=== PATIENT | female | born 1975 | race Caucasian/White ===

== ENCOUNTER 2016-04-25 00:12 | Outpatient (CLI) ==
[2016-03-06 13:23] VITALS: BMI 25.7
== END 2016-04-25 00:13 | disposition home or self-care (01) ==
LOC: AMBL 00:12
PROVIDERS: ATTEND Family Medicine
DX: S60.812A Abrasion of left wrist, initial encounter (principal)

== ENCOUNTER 2017-03-22 16:15 | Outpatient (CLI) ==
[2016-03-06 13:23] VITALS: BMI 25.7
[2017-03-22 16:20] LABS: FLU INTERNAL QC INTERNAL QC VALID; RAPID FLU A NEGATIVE (NEGATIVE); RAPID FLU B NEGATIVE (NEGATIVE)
== END 2017-03-22 16:16 | disposition home or self-care (01) ==
LOC: LAB 16:15
PROVIDERS: ATTEND Nurse Practitioner Family
DX: J02.9 Acute pharyngitis, unspecified (principal); R05 Cough
CPT/HCPCS: 87651; 87804; 87880

== ENCOUNTER 2017-07-18 14:51 | Outpatient (CLI) ==
[2016-03-06 13:23] VITALS: BMI 25.7
--- NOTE | 2017-07-18 15:20 | DI ---
EXAM: PA and lateral views of the chest HISTORY: Cough. COMPARISON: Chest x-ray 03/06/2016 and multiple priors FINDINGS: The cardiomediastinal silhouette is normal. There is no pneumothorax or pleural effusion. There is no consolidation, nodule or mass. The osseous structures are unremarkable. IMPRESSION: No acute cardiopulmonary process
== END 2017-07-18 14:52 | disposition home or self-care (01) ==
LOC: RAD 14:51
PROVIDERS: ATTEND Physician Assistant
DX: R05 Cough (principal)

== ENCOUNTER 2018-02-09 14:44 | Outpatient (CLI) ==
[2016-03-06 13:23] VITALS: BMI 25.7
--- NOTE | 2018-02-09 17:28 | DI ---
EXAM: Three views of the lumbar spine HISTORY: Pain COMPARISON: 09/03/2013 FINDINGS: There are five lumbar-type vertebrae. The lumbar vertebral bodies are normal in height. L5-S1 disc spacers are again seen. No disc height loss or listhesis is seen. There is mild to moderate L4-5 fac et arthropathy. IMPRESSION: L5-S1 disc spacers again seen. No significant degenerative disc disease. Mild to moderate L4-5 facet arthropathy.
== END 2018-02-09 14:45 | disposition home or self-care (01) ==
LOC: RAD 14:44
PROVIDERS: ATTEND Physician Assistant
DX: M54.5 Low back pain (principal)

== ENCOUNTER 2018-03-26 13:02 | Inpatient (IN) ==
[2018-03-26] MEDS ORDERED: SODIUM CHLORIDE 1,000 ML IV STA (13:48)
[2018-03-26] MEDS ORDERED: MORPHINE 2 MG/ML SYRINGE IM STA (13:48)
[2018-03-26] MEDS ORDERED: MORPHINE 2 MG/ML SYRINGE IVP STA (13:48)
[2018-03-26] MEDS ORDERED: ZOFRAN 4 MG/2 ML IVP STA (13:48)
[2018-03-26 14:03] LABS: URINE PREGNANCY TEST NEGATIVE (NEGATIVE)
[2018-03-26] MEDS ORDERED: ROCEPHIN 1 GM in SODIUM CHLORIDE 50 ML IV STA (14:15)
[2018-03-26] MEDS ORDERED: ROCEPHIN ONE (14:27)
--- NOTE | 2018-03-26 14:39 | CT ---
EXAM: CT of the abdomen pelvis without contrast History: Right flank pain. Comparison: CT abdomen pelvis 04/28/2015 Technique: Multiplanar CT images through the abdomen pelvis were obtained without the administration of IV contrast Findings: Lung bases are free of consolidation. No acute osseous abnormalities. Postsurgical duarte es of the lower lumbar spine at L5-S1. No focal liver or splenic lesions. No discrete gallstones identified by CT. No peripancreatic infla mmation. Adrenal glands are unremarkable. Bilateral renal calculi measuring up to 2 mm on the right and 2 mm on the left. No ureteral calculi. No hydronephrosis. Right perinephric inflammation. No bowel obstruction. Nondilated fluid filled loops of bowel. No bladder wall thickening. Adnexal st ructures appear appropriate for patient's age. No free air. Impression: 1. Right perinephric stranding suspicious for pyelonephritis. Recently passed stone could give a si milar appearance. 2. Bilateral nephrolithiasis
--- NOTE | 2018-03-26 15:20 | ED.PDOC ---
General ED Provider: Dr. BROOKLYN CASTREJON Chief Complaint: Back Pain Stated Complaint: low back pain Time Seen by Physician: 13:00 Mode of Arrival: Walk-In Information Source: Patient Exam Limitations: No limitations Primary Care Provider: MICHELLE LOERA Nursing and Triage Documentation Reviewed and Agree: Yes Does patient meet sepsis criteria?: No System Inflammatory Response Syndrome: Not Applicable Sepsis Protocol: For patient's 13 years and over: Temp is 96.8 and below OR 101 and greater Pulse >90 BPM Resp >20/minute Acutely Altered Mental Status Are patient's symptoms suggestive of a new infection, such as: -Pneumonia -Skin, Soft Tissue -Endocarditis -UTI -Bone, Joint Infection -Implantable Device -Acute Abdominal Infection -Wound Infection -Meningitis -Blood Stream Catheter Infection -Unknown Musculoskeletal Complaint Exam - Back Pain Complaint/Exam Mechanism of Injury: Reports: No known trauma Onset/Duration: dysuria Symptoms Are: Still present Timing: Intermittent Episodes Lasting: Minutes Initial Severity: Moderate Current Severity: Moderate Location: Reports: Discrete Character: Reports: Aching Aggravating: Reports: Movements Alleviating: Reports: Rest Associated Signs and Symptoms: Reports: Flank pain TAD Risk Factors: Reports: None Cauda Equina Risk Factors: Reports: None Epidural Abcess Risk Factors: Reports: None Related Surgical History: Reports: None Focal Tenderness: No Paraspinal Muscle Tenderness: No Paraspinal Muscle Spasm: No Scoliosis: No Lordosis: No Kyphosis: No SLR Test: Right Negative, Left Negative Hip Motion Testing Pain: Right Negative, Left Negative Focal Weakness: Present: None Focal Sensory Loss: Present: None Differential Diagnoses: Other (uti) Review of Systems - Review Of Systems Constitutional: Reports: No symptoms Eyes: Reports: No symptoms Ears, Nose, Mouth, Throat: Reports: No symptoms Respiratory: Reports: No symptoms Cardiac: Reports: No symptoms GI: Reports: No symptoms : Reports: Dysuria, Flank pain Musculoskeletal: Reports: No symptoms Skin: Reports: No symptoms Neurological: Reports: No symptoms Endocrine: Reports: No symptoms Hematologic/Lymphatic: Reports: No symptoms All Other Systems: Reviewed and Negative Past Medical History - Past Medical History Previously Healthy: Yes Endocrine: Reports: None Cardiovascular: Reports: None Respiratory: Reports: Asthma Hematological: Reports: None Gastrointestinal: Reports: None Genitourinary: Reports: None Neuro/Psych: Reports: Anxiety, Depression Musculoskeletal: Reports: None Cancer: Reports: None Last Menstrual Period: 1 week ago - Surgical History General Surgical History: Reports: Tubal ligation (TUBAL, LEEP PROCEDURE X2, DIAGNOSTIC LAP), Tonsillectomy, Orthopedic (CYST FROM RIGHT WRIST ), Unknown. Denies: Hysterectomy (LEEP PROCEDURE X2 ) - Family History Family History: Reports: Unknown - Social History Smoking Status: Vaping Hx Substance Use: No Alcohol Screening: None Physical Exam - Physical Exam Appearance: Well-appearing, No pain distress, Well-nourished Eyes: ALFREDO, EOMI, Conjunctiva clear ENT: Ears normal, Nose normal, Oropharynx normal Respiratory: Airway patent, Breath sounds clear, Breath sounds equal, Respirations nonlabored Cardiovascular: RRR, Pulses normal, No rub, No murmur GI/: Soft, Nontender, No masses, Bowel sounds normal, No Organomegaly Musculoskeletal: Normal strength, ROM intact, No edema, No calf tenderness Skin: Warm, Dry, Normal color Neurological: Sensation intact, Motor intact, Reflexes intact, Cranial nerves intact, Alert, Oriented Psychiatric: Affect appropriate, Mood appropriate Interpretation - Radiology Interpretation Radiology Interpretation By: Radiologist Radiology Results: Positive (pylonrphritis) Physician Notification - Case Discussed Physician Notified: [email or web address] Admit To: Inpatient Critical Care Note - Critical Care Note Total Time (mins): 0 Course - Course Hematology/Chemistry: 03/26/18 13:57 03/26/18 13:57 Orders, Labs, Meds: Lab Review 03/26/18 03/26/18 03/26/18 13:57 13:57 13:57 WBC 25.21 H RBC 5.13 Hgb 15.6 Hct 44.5 MCV 86.7 MCH 30.4 MCHC 35.1 RDW Coeff of Ovidio 12.1 Plt Count 346 Immature Gran % (Auto) 0.8 Neut % (Auto) 84.7 Lymph % (Auto) 4.8 L [place] % (Auto) 9.5 Eos % (Auto) 0.0 Baso % (Auto) 0.2 Immature Gran # (Auto) 0.2 Neut # (Auto) 21.4 H Lymph # (Auto) 1.2 [place] # (Auto) 2.4 H Eos # (Auto) 0.0 Baso # (Auto) 0.0 Sodium 130.9 L Potassium 3.58 Chloride 98.1 Carbon Dioxide 22.8 Anion Gap 13.58 BUN 10.0 Creatinine 0.92 Estimated GFR (MDRD) 67.00 BUN/Creatinine Ratio 10.86 Glucose 109.0 H Lactic Acid Calcium 9.26 Total Bilirubin 1.17 AST 29.3 ALT 20.7 Alkaline Phosphatase 96.7 Total Protein 7.48 Albumin 4.25 Globulin 3.23 Albumin/Globulin Ratio 1.31 Procalcitonin Urine Color Yellow Urine Clarity Turbid Urine pH 6.5 Ur Specific [place] 1.015 Urine Protein 2+ Urine Glucose (UA) Negative Urine Ketones 4+ Urine Blood 3+ Urine Nitrite Positive Urine Bilirubin 1+ Urine Urobilinogen 0.2 Ur Leukocyte Esterase 3+ Urine Microscopic RBC 10-20 Urine Microscopic WBC Tntc Ur Squamous Epith Cells Not present Urine Bacteria 2+ Urine Mucus 1+ Urine Test 03/26/18 03/26/18 03/26/18 13:57 14:22 14:22 WBC RBC Hgb Hct MCV MCH MCHC RDW Coeff of [place] Plt Count Immature Gran % (Auto) Neut % (Auto) Lymph % (Auto) [place] % (Auto) Eos % (Auto) Baso % (Auto) Immature Gran # (Auto) Neut # (Auto) Lymph # (Auto) [place] # (Auto) Eos # (Auto) Baso # (Auto) Sodium Potassium Chloride Carbon Dioxide Anion Gap BUN Creatinine Estimated GFR (MDRD) BUN/Creatinine Ratio Glucose Lactic Acid 0.95 Calcium Total Bilirubin AST ALT Alkaline Phosphatase Total Protein Albumin Globulin Albumin/Globulin Ratio Procalcitonin 1.30 Urine Color Urine Clarity Urine pH Ur Specific [place] Urine Protein Urine Glucose (UA) Urine Ketones Urine Blood Urine Nitrite Urine Bilirubin Urine Urobilinogen Ur Leukocyte Esterase Urine Microscopic RBC Urine Microscopic WBC Ur Squamous Epith Cells Urine Bacteria Urine Mucus Urine Test Negative Orders Category Date Time Status ED IV/MEDIPORT/POWERPORT .ONCE EMERGENCY 03/26/18 13:47 Active BLOOD CULTURE (ED ONLY) Stat LAB 03/26/18 14:22 Received CBC W/ AUTO DIFF Stat LAB 03/26/18 13:57 Completed COMPREHENSIVE METABOLIC PANEL Stat LAB 03/26/18 13:57 Completed LACTIC ACID Stat LAB 03/26/18 14:22 Completed PROCALCITONIN Stat LAB 03/26/18 14:22 Completed URINALYSIS C & S IF INDICATED Stat LAB 03/26/18 13:57 Completed URINE CULTURE Stat LAB 03/26/18 13:57 Received URINE Stat LAB 03/26/18 13:57 Completed 0.9 % Sodium Chloride [Saline Flush] MEDS 03/26/18 13:47 Active 1 syr IVF PRN PRN Ceftriaxone Sodium [Rocephin] MEDS 03/26/18 14:27 Discontinued 1 gm .ROUTE .STK-MED ONE Ceftriaxone Sodium [Rocephin] 1 gm MEDS 03/26/18 14:15 Discontinued 0.9 % Sodium Chloride [Sodium Chloride] 50 ml IV ONCE Morphine Sulfate [Morphine 2 mg/ml Syringe] MEDS 03/26/18 13:48 Discontinued 4 mg IVP ONCE STA Ondansetron HCl/Pf [Zofran 4 mg/2 ml] MEDS 03/26/18 13:48 Discontinued 4 mg IVP ONCE STA Sodium Chloride 0.9% [Sodium Chloride] 1,000 ml MEDS 03/26/18 13:48 Active IV 125 mls/hr CT ABD/PEL WO RENAL STONE PROT Stat RADS 03/26/18 13:47 Completed Medications Generic Name Dose Route Start Last Admin Trade Name Freq PRN Reason Stop Dose Admin Sodium Chloride 1,000 mls @ 125 mls/hr 03/26/18 13:48 03/26/18 14:04 Sodium Chloride IV 03/26/18 21:47 125 mls/hr .Q8H STA Administration Sodium Chloride 1 syr 03/26/18 13:47 03/26/18 14:07 Saline Flush IVF 1 syr PRN PRN Administration To flush IV Discontinued Medications Generic Name Dose Route Start Last Admin Trade Name Freq PRN Reason Stop Dose Admin Ceftriaxone Sodium 1 gm/ 50 mls @ 75 mls/hr 03/26/18 14:15 03/26/18 14:33 Sodium Chloride IV 03/26/18 14:54 75 mls/hr ONCE STA Administration Morphine Sulfate 4 mg 03/26/18 13:48 03/26/18 14:04 Morphine 2 Mg/Ml Syringe IVP 03/26/18 13:49 4 mg ONCE STA Administration Ondansetron HCl 4 mg 03/26/18 13:48 03/26/18 14:04 Zofran 4 Mg/2 Ml IVP 03/26/18 13:49 4 mg ONCE STA Administration Vital Signs: Temp Pulse Resp BP Pulse Ox 03/26/18 13:03 101.8 F H 116 H 20 0/0 L 98 Departure - Departure Time of Disposition: 15:22 Disposition: HOME SELF-CARE Discharge Problem: Backache, Pyelonephritis Condition: Good Pt referred to PMD for follow-up: Yes IPMP verified?: No Allergies/Adverse Reactions: Allergies cefprozil [From Cefzil] Adverse Reaction (Verified 03/26/18 13:06) erythromycin base [Erythromycin Base] Adverse Reaction (Verified 03/26/18 13:06) Penicillins Adverse Reaction (Verified 03/26/18 13:06) Home Medications: Ambulatory Orders Albuterol Sulfate [Albuterol Sulfate Hfa] 8.5 gm IH QID PRN #1 hfa.aer.ad Duloxetine HCl [Cymbalta] 30 mg PO BID 03/22/17 Lamotrigine [Lamictal] 100 mg PO BID 03/22/17 Montelukast Sodium [Singulair] 10 mg PO d 03/22/17 Diazepam [Valium] 5 mg PO BID PRN 03/26/18
[2018-03-26] MEDS ORDERED: VALIUM PO PRN (15:23)
[2018-03-26] MEDS ORDERED: MORPHINE 4 MG/ML SYRINGE IVP STA (15:25)
[2018-03-26] MEDS ORDERED: VANCOMYCIN 1 GM in SODIUM CHLORIDE 250 ML IV STA (15:25)
[2018-03-26] MEDS ORDERED: MORPHINE 4 MG/ML SYRINGE IVP PRN (15:25)
[2018-03-26 16:25] VITALS: BMI 21.7
[2018-03-26] MEDS ORDERED: GENTAMICIN SULFATE ONE (17:00)
[2018-03-26] MEDS: NICODERM 21 MG TD SCH (17:09)
[2018-03-26] MEDS: GENTAMICIN SULFATE 80 MG in SODIUM CHLORIDE 50 ML IV SCH ×2 (17:10→23:16)
[2018-03-26] MEDS ORDERED: SODIUM CHLORIDE 50 ML IV ONE (17:10)
[2018-03-26] MEDS: DUONEB NEB SCH ×2 (17:35→23:00)
[2018-03-26] MEDS: DILAUDID 1 MG/ML SYRINGE IVP PRN ×3 (18:04→23:44)
[2018-03-26] MEDS ORDERED: LAMICTAL ONE (20:41)
[2018-03-26] MEDS ORDERED: LAMOTRIGINE 100 MG PO SCH (21:00)
[2018-03-26] MEDS: SODIUM CHLORIDE 1,500 ML IV SCH ×2 (23:45→23:48)
[2018-03-27] MEDS: DILAUDID 1 MG/ML SYRINGE IVP PRN ×8 (02:58→23:25)
[2018-03-27] MEDS ORDERED: DUONEB NEB ONE (04:14)
[2018-03-27] MEDS: DUONEB NEB SCH ×4 (05:40→23:45)
[2018-03-27] MEDS: SODIUM CHLORIDE 1,000 ML IV SCH ×2 (05:51→08:22)
[2018-03-27] MEDS ORDERED: GENTAMICIN SULFATE ONE (06:27)
[2018-03-27] MEDS: GENTAMICIN SULFATE 80 MG in SODIUM CHLORIDE 50 ML IV SCH ×3 (06:32→20:58)
[2018-03-27] MEDS: SODIUM CHLORIDE 1,500 ML IV SCH (07:23)
[2018-03-27] MEDS: NICODERM 21 MG TD SCH (08:37)
[2018-03-27] MEDS: LAMICTAL PO SCH ×2 (08:40→20:59)
[2018-03-27] MEDS ORDERED: ROCEPHIN 1 GM in SODIUM CHLORIDE 50 ML IV SCH (09:00)
[2018-03-27] MEDS ORDERED: TYLENOL PO PRN (13:34)
[2018-03-27] MEDS ORDERED: ROCEPHIN 1 GM in SODIUM CHLORIDE 50 ML IV STA (14:04)
[2018-03-27] MEDS ORDERED: ROCEPHIN ONE (14:17)
[2018-03-27] MEDS ORDERED: POTASSIUM CHLORIDE 20 MEQ VIAL IV ONE ×2 (14:17→23:51)
[2018-03-27] MEDS ORDERED: LOVENOX ONE (14:17)
[2018-03-27] MEDS ORDERED: INFUVITE ADULT IV ONE ×2 (14:18→23:51)
[2018-03-27] MEDS ORDERED: POTASSIUM CHLORIDE IV SCH (14:30)
[2018-03-27] MEDS ORDERED: [UNRECOGNIZED DRUG - OTHER] IV SCH (14:30)
[2018-03-27] MEDS ORDERED: INFUVITE ADULT IV SCH (14:30)
[2018-03-27] MEDS: CYMBALTA PO SCH (14:32)
[2018-03-27] MEDS: LOVENOX SUBCUT SCH (14:34)
[2018-03-27] MEDS: ZOFRAN 4 MG/2 ML IVP PRN (17:49)
[2018-03-27] MEDS: SINGULAIR PO SCH (20:59)
[2018-03-27] MEDS: VALIUM PO PRN (21:28)
[2018-03-27] MEDS: [UNRECOGNIZED DRUG - OTHER] IV SCH (23:59)
[2018-03-27] MEDS: POTASSIUM CHLORIDE IV SCH (23:59)
[2018-03-27] MEDS: INFUVITE ADULT IV SCH (23:59)
[2018-03-28] MEDS: DILAUDID 1 MG/ML SYRINGE IVP PRN ×5 (03:37→19:56)
[2018-03-28] MEDS: DUONEB NEB SCH ×4 (04:55→23:25)
[2018-03-28] MEDS: GENTAMICIN SULFATE 80 MG in SODIUM CHLORIDE 50 ML IV SCH ×2 (06:19→13:15)
[2018-03-28] MEDS: [UNRECOGNIZED DRUG - OTHER] IV SCH ×2 (08:18→13:47)
[2018-03-28] MEDS: POTASSIUM CHLORIDE IV SCH ×2 (08:18→13:47)
[2018-03-28] MEDS: INFUVITE ADULT IV SCH ×2 (08:18→13:47)
[2018-03-28] MEDS: NICODERM 21 MG TD SCH (08:33)
[2018-03-28] MEDS: CYMBALTA PO SCH (08:36)
[2018-03-28] MEDS: LAMICTAL PO SCH ×2 (08:37→20:28)
[2018-03-28] MEDS: LOVENOX SUBCUT SCH (08:38)
[2018-03-28] MEDS ORDERED: ROCEPHIN 2 GM in SODIUM CHLORIDE 100 ML IV ONE (09:00)
--- NOTE | 2018-03-28 11:44 | HP ---
DATE OF SERVICE: 03/26/18 CHIEF COMPLAINT: Pain, right CVA radiating to the right flank. SOURCE OF HISTORY: The patient (relability is somewhat reliable), records from the emergency room, the triage, the doctor's ER notes were also reviewed. HISTORY OF PRESENT ILLNESS: The patient claimed last Monday, four days prior to presentation to the emergency room in the morning did experience pain in the back, right CVA radiating to the right flank. I asked her if she had any chilly sensations or chills and she denied. Also I asked her if she had run a fever and she told me that she doesn't know but her told her that skin was very hot. She presented to the emergency room on 03/26/18 and was seen by the Emergency Room physician at 1300 hours. This patient denied any prior dysuria. The patient on Monday, the day before presentation ddi experience terminal dysuria. Denied any blood or gross blood in the urine. She had mild nausea. The patient denied any abdominal pain. The patient on presentation was noted to have a temperature 101.8 tympanic, pulse rate of 116, respiratory rate 20, oxygen saturation 98 on room air. Pain level 9 on a scale of 1 to 10. The patient had taken Relafen, Ibuprofen and Voltaren gel to the area. Low blood pressure was recorded in the emergency room. Initial labs in the emergency room showed a WBC of 25,210, 21.4 neutrophils but no stabs. Sodium was slightly lower 130.9, GFR 67, BUN 10, creatinine 0.92. Procalcitonin 1.30. Urinalysis specific gravity 1.015, 2+ protein, 4+ ketones. Urine blood 3+, nitrite positive. Leukocyte esterase 3+, RBC 10 to 20, WBC too numerous to count, squamous epithileal cells negative. Urine bacteria 2+, mucus 1+; negative. This patient also had tubal ligation. CT scan of the abdomen and pelvis without contrast, right perinephric stranding suspicious of pyelonephritis, recently passed stone could give a similar appearance. The patient has two renal calculi that are 2 mm in size, right and left. No ureteral calculi and no hydronephrosis. Lung bases are without any consolidation. Post surgical changes of the lumbar spine, L5-S1. The patient was then admitted with a diagnosis of pyelonephritis. The patient was initiated with Normal Saline at 125 cc/hr from the emergency room. Also given Ceftriaxone 1 gm intravenously. The case had been discussed with me by the ER physician. PAST PERSONAL HISTORY: The patient was diagnosed with IBS Bipolar disorder. The patient was admitted to [address] for one night. Tonsillectomy LEEP times two Tubal ligation Laparoscopy Lumbar surgery L5-S1 Last pap smear was 2012 Cyst removed in the right breast The patient also has asthma Astigmatism FAMILY HISTORY: Father had coronary artery disease and had cardiac catheterization with stent and of acute myocardial infarction. Mother heart disease questionable and diabetes in maternal family. SOCIAL HISTORY: The patient is and resides with and children ranging from 16 to 22 years of age. She does smoke every day moderately and used vaping. She admitted to the use of marijuana. She denied any use of methamphetamine or other substances. No history of alcohol use. MEDICATIONS: (PRIOR TO THIS ADMISSION) Albuterol Sulfate one inhalation four times a day as needed Lamictal 100 mg tablet twice a day Cymbalta 60 mg daily Singulair 10 mg tablet daily Albuterol 2.5 mg/3 cc per nebulization q.4 to 6 hr p.r.n. Valium 5 mg twice a day Lamictal 100 mg twice a day - used for bipolar disorder since this patient does not have any history of convulsive seizures ALLERGIES: PENICILLIN WHEN SHE WAS VERY YOUNG AND HER MOTHER TOLD HER SHE BROKE OUT IN HIVES WELL ERYTHROMYCIN, CEFPROZIL PRODUCED VOMITING BUT NO SKIN ERUPTIONS, HIVES OR SWELLING (THIS IS A SECOND GENERATION CEPHALOSPORIN) REVIEW OF SYSTEMS: CONSTITUTIONAL: The patient denied any fever or chills at all though her told her that her skin was burning. She denied any chilly sensation or chills. I repeatedly asked her this question. She was tired from the pain. PHYSICAL DESIGN ENGINEER: The patient has some headaches but no ataxia, no episode of syncope and no seizure events. VISUAL: Denies any blurred vision, double vision or loss of vision. AUDITORY: Negative. RESPIRATORY: The patient has cough but not anymore than usual. No shortness of breath and no hemoptysis. CARDIOVASCULAR: Denies any chest pain, chest tightness or diaphoresis. GASTROINTESTINAL: She had some nausea, mild. No vomiting. No abdominal pain. No diarrhea. GENITOURINARY: The patient did complain of terminal dysuria on Monday, the day before admission to the emergency room and pain in the right CVA radiating to the right flank. MUSCULOSKELETAL: Denies any significant joint pains or muscular pain. INTEGUMENT: She denied any rash or pruritus or any ecchymosis. ENDOCRINE: Negative. HEMATOLOGIC: No history of prolonged bleeding or any other problems related to the hematopoietic system. PSYCHIATRIC: Affect appears to be somewhat decreased. The patient however doesn' t feel good and has the pain in the right CVA. The patient told me that her psychiatrist has left town and that her primary provider is also leaving [facility]. PHYSICAL EXAMINATION: GENERAL: 42-year-old female admitted to the hospital because of fever , abnormal urine and markedly elevated WBC and abnormal CT scan of the abdomen and pelvis showing findings compatible with pyelonephritis, right side. VITAL SIGNS: On admission 03/26/18 at 1603 showed temperature 99.5 oral, pulse 100, BP 122/70, respiratory rate 18, oxygen saturation 100 on room air. She weighed 126 lbs, 5.19 ozs at 5'4", BMI 21.7. She was listed in the emergency room at 135. This scale has to be evaluated at least approximately 1 lb difference instead of 10 lbs. HEAD: Unremarkable. Face is symmetrical and equal with no facial weakness and no significant tenderness to palpation in the frontomaxillary sinus areas. EYES: Pupils equal/reactive to light about 3 mm in size. Conjunctivae not pale. Sclerae not icteric. MOUTH: Unremarkable. THROAT: No inflammation, no exudate. NECK: No masses. No bruit. No tenderness. No adenopathies or adenitis. No rigidity. CHEST: Essentially symmetrical and equal with good expansion. LUNGS: Breath sounds are heard on both sides slightly diminished. No rales or wheezing. HEART: Audible and regular, slightly tachycardic. No murmurs. ABDOMEN: Flat, soft with no remarkable tenderness. No guarding. No masses palpable. Bowel sounds are active. LOWER EXTREMITIES: Symmetrical and equal with no tenderness in the calf muscles and no pedal edema. Pedal pulses are present but the posterior tibials are diminished in volume. Percussion right CVA markedly tender, left nontender. ASSESSMENT: 1. ACUTE PYELONEPHRITIS WITH PROBABLE BACTEREMIA PLAN: Continue the same orders except Vancomycin will be changed to Garamycin. Urinalysis may have an E. coli and doubtful if it is sensitive to Vanco. TIME SPENT: GREATER THAN 65 MINUTES MTDD
--- NOTE | 2018-03-28 11:55 | PN ---
DATE OF SERVICE: 03/27/18 SUBJECTIVE: The patient was seen about two o'clock this afternoon and was complaining of headache as well as pain. The pain was rated at 9 and after medication the pain goes down to 7 according to her. The temperature did rise to 101.2 and the pulse did also go up to 112. Her blood pressure was 114/66 and respiratory rate 20, oxygen saturation 100 on room air. Lungs remained clear. 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 WBC now is down to 14,930 and neutrophils are down to 12 from 21.4, sodium slightly higher 131.3, blood sugar 110.6, calcium 7.82, total protein down to 5.96. The procalcitonin is down to 0.87 from 1.30. The urine culture did grow gram negative rods, heavy growth and blood culture also was positive for gram negative rods. No ID at this time but probably mostly E. coli. I am waiting for the sensitivity as well as the ASHELY. If it not ESBL positive, it should probably be sensitive to the Ceftriaxone as well as Garamycin. The lab did tell us that the sensitivity and ASHELY will be available tomorrow morning. This patient will be given Dextrose 5% in Lactated Ringers, 20 KCL plus MVI to run at 125 cc per hour. I did come back about 7 p.m. and she told me she still has pain and the headache is still present. The pain is partially relieved but very short duration about 30 minutes. I did explain to her earlier that I would not like to give her Tylenol to bring down the temperature. The headache may be the result from the fever. I told her that there were no stones in the tubes but she does have small stones on both right and left kidney, 2 mm in size. It they will come down it will probably give her pain but most likely the stone would go through and would pass spontaneously. I did also advise her earlier that the infection had gotten into her blood which becomes a serious problem. We still do not have the vital signs at 7 p.m. tonight. The Ceftriaxone was increased to 2 gm daily instead of 1. I will order a urinalysis tomorrow. Dilaudid was increased to 2 mg from 1 to be given every 3 hours p.r.n. MTDD
[2018-03-28] MEDS: SINGULAIR PO SCH (20:27)
[2018-03-28] MEDS: VALIUM PO PRN (20:30)
[2018-03-28] MEDS ORDERED: INFUVITE ADULT IV ONE (20:33)
[2018-03-28] MEDS: INFUVITE ADULT 10 ML in D5%-1/2NS-KCL 20 MEQ/L IV SOL 1,000 ML IV SCH (20:34)
[2018-03-29] MEDS: DILAUDID 1 MG/ML SYRINGE IVP PRN ×6 (04:55→22:10)
[2018-03-29] MEDS: DUONEB NEB SCH ×4 (05:05→23:04)
[2018-03-29] MEDS: CYMBALTA PO SCH (09:29)
[2018-03-29] MEDS: LAMICTAL PO SCH ×2 (09:30→20:59)
[2018-03-29] MEDS: NICODERM 21 MG TD SCH (09:30)
[2018-03-29] MEDS: ROCEPHIN 2 GM in SODIUM CHLORIDE 50 ML IV SCH (09:30)
[2018-03-29] MEDS: LOVENOX SUBCUT SCH (09:31)
[2018-03-29] MEDS: INFUVITE ADULT 10 ML in D5%-1/2NS-KCL 20 MEQ/L IV SOL 1,000 ML IV SCH ×2 (09:44→20:34)
[2018-03-29] MEDS: ROBITUSSIN AC SYRUP PO PRN ×3 (11:36→23:14)
[2018-03-29] MEDS ORDERED: INFUVITE ADULT IV ONE (20:03)
[2018-03-29] MEDS ORDERED: LAMICTAL ONE (20:54)
[2018-03-29] MEDS: SINGULAIR PO SCH (20:59)
[2018-03-30] MEDS: DILAUDID 1 MG/ML SYRINGE IVP PRN ×4 (02:18→15:00)
[2018-03-30] MEDS: DUONEB NEB SCH ×3 (05:16→16:45)
[2018-03-30] MEDS: CYMBALTA PO SCH (08:52)
[2018-03-30] MEDS: LAMICTAL PO SCH (08:52)
[2018-03-30] MEDS: NICODERM 21 MG TD SCH (08:55)
[2018-03-30] MEDS: INFUVITE ADULT 10 ML in D5%-1/2NS-KCL 20 MEQ/L IV SOL 1,000 ML IV SCH (08:57)
[2018-03-30] MEDS: ROCEPHIN 2 GM in SODIUM CHLORIDE 50 ML IV SCH (08:57)
[2018-03-30] MEDS: LOVENOX SUBCUT SCH (08:58)
--- NOTE | 2018-03-30 10:41 | US ---
EXAM: Renal ultrasound. History: Pyelonephritis. Comparison: CT abdomen pelvis 03/26/2018 and Technique: Multiple sonographic images through the kidneys were obtained. Color duplex Doppler was used to interrogate vascular flow. Findings: Both ureteral jets are seen in the bladder. No bladder wall thickening. The right kidney measures 11 cm in long length demonstrating normal cortical echogenicity without barbra dence for hydronephrosis, mass or shadowing calculus. The left kidney measures 11.3 cm in long length demonstrating normal cortical echogenicity without ev idence for hydronephrosis, mass or shadowing calculus. Impression: Sonographically normal kidneys
[2018-03-30] MEDS: ROBITUSSIN AC SYRUP PO PRN (11:27)
[2018-03-30] MEDS: ZOFRAN 4 MG/2 ML IVP PRN (12:11)
[2018-03-30 15:02] VITALS: BP 112/77; TEMP 98.1
--- NOTE | 2018-04-05 15:18 | DS ---
DATE OF SERVICE: 03/30/18 PATIENT IDENTIFICATION: 42 year old female who presented to the emergency room on 03/26/2018 because of pain in the right posterior back about the CVA radiating towards the flank. The patient denied any fever or chills. The , however, told her that her skin was burning. She did experience terminal dysuria, but not at the beginning. Terminal dysuria began a day prior to presentation to the emergency room. The patient in the emergency room was recorded to have a temperature of 101.8, pulse rate of 116, respiratory rate 20. Oxygen saturation on room air 98. Labs showed markedly elevated WBC 25,210 , 21.4 neutrophils, but no stabs. Procalcitonin has risen to 1.30. Urinalysis markedly abnormal with 3+ blood, nitrite positive, leukocyte esterase positive, RBC 10-20, WBC too numerous to count, bacteria 2+. CT scan of the abdomen and pelvis showed right perinephric stranding suspicious for pyelonephritis, bilateral nephrolithiasis 2 mm in size, no ureteral stone and no hydronephrosis. Blood cultures and urine cultures were initiated in the emergency room and she was given 1 gram of Ceftriaxone IV. The patient was given Morphine in the emergency room without any significant relief according to the patient and was continued at 2 mg every 4 hours. The patient's IV is 0.9 sodium chloride at 125 cc per hour. An order of Vancomycin was given, but not administered and this was discontinued. Urinary tract infections are E coli. HOSPITAL COURSE: The patient's medications were continued, except for the Albuterol and the Morphine was discontinued and replaced with Dilaudid at 1 mg every 12 hours and later changed to 2 mg every 3 hours. Gentamicin 80 mg IV every 12 hours was given. The patient's IV was changed to Dextrose 5% in one half saline, 1000 cc plus 20 of KCL, plus MVI at 83 cc per hour. The patient remained afebrile on 03/27/2018 to the day of discharge. Her blood pressure also had been stable. The patient at the time of discharge was alert, ambulatory with movement of all extremities and no facial weakness. LUNGS: Clear to auscultation in both sides. HEART: Audible and regular with good tones. ABDOMEN: Soft and nontender. Percussion of the right CVA still producing some tenderness, but less. CBC on 03/30/2018 on discharge showed the WBC of 6,720, neutrophils 4.2, electrolytes normal, except for slightly lower potassium 3.24, E GFR 99, creatinine 0.66. The AST is down to 49.9 from a high of 99.1 and the ALT is down to 66.3 from 67.7 yesterday. Alkaline phosphatase is slightly higher at 177.1 from 174.9. Lactate dehydrogenase yesterday was normal at 169. Procalcitonin 0.76 from 1.30. Repeat urinalysis on 03/29/18 shows a completely normal urine. No protein, no ketones, no blood, nitrite negative, leukocyte esterase negative, no RBC, no WBC. Renal ultrasound was interpreted as normal kidneys. PLAN: The patient at discharge was prescribed Ciprofloxacin 500 mg twice a day and for pain Hydrocodone/APAP 5/325 mg to be taken one every 8 to 12 hours. This patient is to see me this coming Monday with a prior CBC, CMP. This patient should resume the Albuterol that she is using, the Diazepam, Cymbalta, Lamictal, Montelukast. This patient will be advised to follow up after I have seen her this coming Monday to [facility]. She was telling me that Yari Weiss, her primary provider, is leaving [facility]. I do not known when. She is to see me at 11 o'clock. She was further advised to return to the emergency room if she has acute problems. FINAL DIAGNOSES: 1. ACUTE PYELONEPHRITIS 2. E.COLI BACTEREMIA SECONDARY TO #1. TIME SPENT: GREATER THAN 30 MINUTES MTDD
--- NOTE | 2018-04-05 15:37 | PN ---
DATE OF VISIT: 03/28/18 The patient late this afternoon is alert, oriented, still complaining of pain on the right side. She seemed to be taking the medication on the hour that it is scheduled. Temperature had remained normal since after the rise to 101.2. Ceftriaxone was increased to 2 grams every day and the Dilaudid was increased to 2 mg every 3 hours instead of 1 mg every two. VITAL SIGNS: At 2 p.m. on 03/28/18 showed a temperature of 98.1, pulse of 76, blood pressure 110/80, respiratory rate 20, oxygen saturation on room air 100%. LUNGS: Clear to auscultation. HEART: Normal sinus rhythm. ABDOMEN: Nontender. She still has the tenderness in the right CVA. The patient does not appear to be in any distress respiratory or otherwise and her color is good. Labs today now shows a normal WBC 9,550 from 25,210 on admission. The hemoglobin is slightly below 12 at 11.9 and hematocrit 35.5. Neutrophils are now towards normal at 7 from 21.4. The AST had elevated at 99.1 from 21.9 yesterday and ALT at 63.8. I am not certain as to why, as well as the rise of the alkaline phosphatase to 134 from 70.9. This may be the result of the infection and we will see what the repeat follow up hepatic panel will show. The patient denies any abdominal pain and no abdominal tenderness. MTDD
--- NOTE | 2018-04-06 14:28 | PN ---
DATE OF VISIT: 03/29/18 The patient remained alert, oriented times four, not dyspneic, nor tachypneic. Her color is good. The patient had been afebrile since the later part . She was completed afebrile on 03/28/2018. The patient's vital signs at 1:33 p.m. on 03/29/2018 showed a temperature of 98 oral, pulse 89, blood pressure 113 /73, respiratory rate 16, oxygen saturation 100 at room air. Urine culture did show E coli, as well as the blood, both aerobe and anaerobic virals. They were all sensitive to the medications tested and this patient was Ceftriaxone at 2 grams and the ASHELY is less than one. She was also on Gentamicin, which was discontinued already and the ASHELY is less than 1. It is sensitive to Cipro, Levofloxacin, Bactrim, Zosyn, Amoxicillin, UniSyn, Augmentin and the rest of the cephalitine medications. The patient is still continued on pain medication. We will obtain a renal or kidney ultrasound tomorrow to see the status of the right kidney in particular. Her appetite seemed to be acceptable consuming from 50 to 100% of snacks or dinner. Her labs today, 03/29/2018, showed a decreasing WBC now 8,870, hemoglobin 12.6, hematocrit 36.4, neutrophils 6.2 normal. Electrolytes normal. Renal panel normal. Blood sugar 103.7. GGT 118, upper normal 6, AST down to 68 from 99. ALT up slightly 67.7 from 63.8. Alkaline phosphatase elevated to 174.9 from 134. The patient's general appearance is good. LUNGS: Clear. ABDOMEN: Nontender. She still has some tenderness in the CVA to percussion. No tenderness on the left. We will continue the same regimen and repeat the CBC and CMP tomorrow. Also, we will include Procalcitonin. MTDD
== END 2018-03-30 18:15 | disposition home or self-care (01) | DRG 690 ==
LOC: ED 13:02 → MEDSURG B 15:33
PROVIDERS: ADMIT General Practice; ATTEND General Practice
DX: N10 Acute pyelonephritis (principal); B96.20 Unspecified Escherichia coli [E. coli] as the cause of diseases classified elsewhere; R30.0 Dysuria; R51 Headache
CPT/HCPCS: 36415; 74176; 80053; 80306; 81001; 81025; 82150; 82977; 83605; 83615; 83690; 84145; 85025; 87040; 87070; 87086; 87186; 94640; 96365; 96375; 96376; 99223; 99232; 99239; 99284

== ENCOUNTER 2018-04-02 09:18 | Outpatient (CLI) | END 2018-04-02 09:19 | disposition home or self-care (01) | LOC: LAB 09:18 | PROVIDERS: ATTEND General Practice | DX: N12 Tubulo-interstitial nephritis, not specified as acute or chronic (principal) | CPT/HCPCS: 36415; 80053; 81001; 85025; 87086 ==